=== PATIENT | male | born 1970 | race American Indian/Alaskan Native ===

== ENCOUNTER 2017-01-16 18:29 | Emergency (ER) | payer OTHER ==
[~2017-01-16] VITALS: Ht 177.8 cm; Wt 132.5 kg
[2017-01-16 19:13] LABS: PLATELET COUNT 294 K/uL (142-355)
[2017-01-16 22:01] VITALS: BP 168/82; TEMP 98
== END 2017-01-16 22:01 | disposition home or self-care (01) ==
LOC: ED 18:29
DX: N13.2 Hydronephrosis with renal and ureteral calculous obstruction (principal); R10.9 Unspecified abdominal pain
CPT/HCPCS: 36415; 81000; 85027; 96372; 99283; J1885

== ENCOUNTER 2017-03-26 22:10 | Emergency (ER) | payer OTHER ==
[~2017-03-26] VITALS: Ht 177.8 cm; Wt 132.9 kg
[2017-03-26] MEDS ORDERED: AMLO2.5T PO (22:22)
[2017-03-26 22:46] VITALS: BP 137/86; TEMP 98.3
== END 2017-03-26 22:46 | disposition home or self-care (01) ==
LOC: ED 22:10
DX: G43.909 Migraine, unspecified, not intractable, without status migrainosus (principal)
CPT/HCPCS: 99282

== ENCOUNTER 2018-11-17 07:58 | Emergency (ER) | payer OTHER ==
[~2018-11-17] VITALS: Ht 177.8 cm; Wt 129.3 kg
[~2018-11-17 07:58] MED LIST: AMLO2.5T PO
[2018-11-17 08:05] VITALS: BP 122/67; TEMP 98.8
== END 2018-11-17 08:45 | disposition home or self-care (01) ==
LOC: ED 07:58
DX: N45.1 Epididymitis (principal)
CPT/HCPCS: 99282

== ENCOUNTER 2022-09-18 07:23 | Emergency (ER) | payer OTHER ==
[~2022-09-18] VITALS: Ht 177.8 cm; Wt 129.3 kg
[2022-09-18 07:30] VITALS: BP 135/70; TEMP 98.5
== END 2022-09-18 08:50 | disposition home or self-care (01) ==
LOC: ED 07:23
DX: M75.51 Bursitis of right shoulder (principal); M25.511 Pain in right shoulder
CPT/HCPCS: 96372; 99283; J1100; J1885